=== PATIENT | female | born 2000 | race Caucasian/White ===

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

== ENCOUNTER → 2020-03-30 | Outpatient (CLI) | payer BC ==
[~2020-03-30] MED LIST: OMNIPAQUE 350 MG/ML, 100ML BOTTLE ONE
== END | disposition home or self-care (01) ==
LOC: CFH 09:42
PROVIDERS: ATTEND Registered Nurse
DX: K57.30 Diverticulosis of large intestine without perforation or abscess without bleeding (principal); R19.5 Other fecal abnormalities; R19.7 Diarrhea, unspecified; Z68.24 Body mass index [BMI] 24.0-24.9, adult
CPT/HCPCS: 74177; Q9967

== ENCOUNTER 2020-06-05 14:15 | Emergency (ER) | payer BC ==
[~2020-06-05] VITALS: Ht 175.3 cm; Wt 80.0 kg
--- NOTE | 2020-06-05 14:27 | NUR ---
Called for pt twice in triage, no response.
[2020-06-05] MEDS ORDERED: FAMOTIDINE 20 MG TABLET PO ONE (15:00)
--- NOTE | 2020-06-05 15:00 | NUR ---
PT STATES SENT FROM FOR CHEST PRESSURE SINCE YESTERDAY
[2020-06-05 15:31] LABS: BASOPHILS % (AUTO) 1 % (0-1); EOSINOPHILS % (AUTO) 6 % (1-7); LYMPHOCYTES % (AUTO) 19 % (22-44); MEAN CORPUSCULAR HEMOGLOBIN 29.5 pg (27.0-34.8); MEAN CORPUSCULAR HGB CONC 34.3 g/dL (32.4-35.8); MEAN PLATELET VOLUME 7.6 fL (7.4-10.4); MONOCYTES % (AUTO) 9 % (2-9); NEUTROPHILS % (AUTO) 66 % (42-75); PLATELET COUNT 329 x10^3/uL (130-400); RED BLOOD COUNT 4.68 x10^6/uL (3.82-5.3); RED CELL DISTRIBUTION WIDTH 13.7 % (9.6-15.2)
[2020-06-05 15:34] LABS: MD NO
[2020-06-05 15:48] LABS: ALANINE AMINOTRANSFERASE 20 U/L (12-78); ALBUMIN 3.6 g/dL (3.4-5.0); ANION GAP 10 mmol/L (5-15); CALCIUM 8.7 mg/dL (8.5-10.1); CHLORIDE 108 mmol/L (98-107); CREATININE 0.65 mg/dL (0.55-1.02)
[2020-06-05 15:50] LABS: ALKALINE PHOSPHATASE 70 U/L (45-117); BILIRUBIN,TOTAL 0.3 mg/dL (0.2-1.0); TOTAL PROTEIN 7.9 g/dL (6.4-8.2)
[2020-06-05 16:43] VITALS: BP 116/63
== END 2020-06-05 16:46 | disposition home or self-care (01) ==
LOC: ED 16:30
DX: K21.9 Gastro-esophageal reflux disease without esophagitis (principal); R10.13 Epigastric pain; R11.0 Nausea; R07.89 Other chest pain; R06.02 Shortness of breath; R00.0 Tachycardia, unspecified
CPT/HCPCS: 36415; 71046; 80053; 83690; 85025; 93005; 99285

== ENCOUNTER 2020-06-27 19:35 | Emergency (ER) | payer BC ==
[~2020-06-27] VITALS: Ht 175.3 cm; Wt 75.0 kg
[2020-06-27 19:50] VITALS: BP 123/80
[2020-06-27] MEDS ORDERED: LIDOCAINE-MPF 1%, 5ML ONE (21:10)
--- NOTE | 2020-06-27 21:15 | NUR ---
pt in bed with no signs or symptoms of acute distress noted respirations even and unlabored provider at bedside to perform lac repair.
[2020-06-27] MEDS ORDERED: DIPH,PERTUSS(ACELL),TET VAC/PF 0.5 ML IM-VACC ONE ×2 (21:28→21:30)
[2020-06-27] MEDS ORDERED: LIDOCAINE-MPF 1%, 5ML INFIL ONE (21:30)
--- NOTE | 2020-06-27 21:42 | NUR ---
pt wound cleaned and dressed, pt medicated as ordered with im adacel. pt and friend verbalize undersanding and agreement with instructions for sutures. pt verbalizes readiness to dc, no signs or symptoms of acute dsitress noted respirations even and unlabored
== END 2020-06-27 21:49 | disposition home or self-care (01) ==
LOC: ED 21:42
DX: S61.210A Laceration without foreign body of right index finger without damage to nail, initial encounter (principal); W26.0XXA Contact with knife, initial encounter; Y93.89 Activity, other specified; Y92.009 Unspecified place in unspecified non-institutional (private) residence as the place of occurrence of the external cause; Y99.8 Other external cause status
CPT/HCPCS: 12041; 90471; 90715; 99284